=== PATIENT | female | born 1950 | race Caucasian/White ===

== ENCOUNTER 2019-09-22 22:07 | Emergency (ER) | payer MEDICARE, OTHER ==
[~2019-09-22] VITALS: Ht 162.6 cm; Wt 76.0 kg
--- NOTE | 2019-09-22 22:18 | NUR ---
JUDE AT BEDSIDE FOR ASSESSMENT
--- NOTE | 2019-09-22 22:18 | NUR ---
THIS IS A 69Y F BIB EMS FROM [email or web address], PT WAS EATING DINNER WITH AND CHOKED ON SALAD. UPON EMS ARRIVAL PT STS FELT LIKE SOMETHING WAS STUCK AND WOULD NOT GO DOWN. PT NOW STS IT WENT DOWN OK DENIES PAIN. PT MANAGING AIRWAY AND SECRETIONS WELL VSS,
--- NOTE | 2019-09-22 22:20 | NUR ---
[facility] [phone]
--- NOTE | 2019-09-22 22:29 | NUR ---
XRAY AT BEDSIDE, LAB AT BEDSIDE FOR DRAW.
[2019-09-22 22:42] LABS: BASOPHILS # (AUTO) 0.02 x10^3/uL (0-0.1); BASOPHILS % (AUTO) 0 % (0-1); EOSINOPHILS # (AUTO) 0.13 x10^3/uL (0-0.4); EOSINOPHILS % (AUTO) 3 % (1-7); LYMPHOCYTES # (AUTO) 1.68 x10^3/uL (1-3.4); LYMPHOCYTES % (AUTO) 35 % (22-44); MD NO; MEAN CORPUSCULAR HEMOGLOBIN 33.8 pg (27.0-34.8); MEAN CORPUSCULAR HGB CONC 34.2 g/dL (32.4-35.8); MEAN CORPUSCULAR VOLUME 98.9 fL (80-100); MONOCYTES # (AUTO) 0.25 x10^3/uL (0.2-0.8); MONOCYTES % (AUTO) 5 % (2-9); NEUTROPHILS # (AUTO) 2.68 x10^3/uL (1.8-6.8); NEUTROPHILS % (AUTO) 56 % (42-75); PLATELET COUNT 231 x10^3/uL (130-400); RED BLOOD COUNT 4.09 x10^6/uL (3.82-5.3); RED CELL DISTRIBUTION WIDTH 13.2 % (9.6-15.2)
[2019-09-22 22:45] VITALS: BP 133/59
--- NOTE | 2019-09-22 22:46 | NUR ---
PT PROVIDED SIP OF WATER, PT TOLERATED WELL NO DIFFICULTY
--- NOTE | 2019-09-22 22:47 | NUR ---
AT BEDSIDE NOW, PT EXPRESSES NO NEEDS AT THIS TIME
[2019-09-22 22:52] LABS: ALBUMIN 3.8 g/dL (3.4-5.0); ANION GAP 7 mmol/L (5-15); CALCIUM 8.9 mg/dL (8.5-10.1); CHLORIDE 108 mmol/L (98-107)
[2019-09-22 22:57] LABS: CREATININE 0.66 mg/dL (0.55-1.02); TROPONIN I < 0.015 ng/mL (0.000-0.045)
== END 2019-09-22 23:49 | disposition home or self-care (01) ==
LOC: ED 22:54
DX: R07.89 Other chest pain (principal); R06.02 Shortness of breath; I48.91 Unspecified atrial fibrillation; Z85.3 Personal history of malignant neoplasm of breast
CPT/HCPCS: 36415; 71045; 80048; 82040; 84484; 85025; 93005; 99285